=== PATIENT | male | born 1995 | race Caucasian/White ===

== ENCOUNTER 2017-07-21 05:29 | Emergency (ER) | payer OTHER ==
[2017-07-21 05:35] VITALS: PULSE 50; O2SAT 98
--- NOTE | 2017-07-21 05:35 | EDPHY ---
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 He presents emergency room by EMS after please make contact with him after his wandering around the outside of the local care home. He apparently got lost on [place] way [place]. He walked the wrong way and ended up outside the local care home. He does admit to drinking alcohol earlier in the evening. It is now 530 in the morning. Presents emergency room still intoxicated with alcohol on laceration to his right hand. He states he cut his hand on a fence. He is unsure exactly how he did this. He denies any other complaints. Past Medical History: Denies medical history Past Surgical History: Denies surgical history Social History: Admits to large amount of alcohol this evening. [employer] student. Does not smoke. Denies drugs. Family History: Noncontributory ROS REVIEW OF SYSTEMS: A comprehensive 10 point review of systems is otherwise negative aside from elements mentioned in the history of present illness. Exam Constitutional smells of alcohol, intoxicated, triage nursing summary reviewed , vital signs reviewed, awake/alert. Eyes normal conjunctivae and sclera, EOMI, PERRLA. HENT normal inspection, atraumatic, moist mucus membranes, no epistaxis, neck supple/ no meningismus, no raccoon eyes. Respiratory clear to auscultation bilaterally, normal breath sounds, no respiratory distress, no wheezing. Cardiovascular rate normal, regular rhythm, no murmur, no edema, distal pulses normal. Gastrointestinal soft, non-tender, no rebound, no guarding, normal bowel sounds, no distension, no pulsatile mass. Genitourinary no CVA tenderness. Musculoskeletal no midline vertebral tenderness, full range of motion, no calf swelling, no tenderness of extremities, no meningismus, good pulses, neurovascularly intact. Skin right hand: V-shaped laceration on the palmar surface middle of the palm 3 cm x 4 cm v-shaped. Rather deep. No obvious tendon mom. No arterial injury. No tendon involvement. Full range of motion of the right hand. Is neurovascular intact good cap refill. Good strength. Good attic blower strength. Full range of motion fingers. Significant amount of dry blood on both hands. Neurologic awake, alert and oriented x 3, AAOx3, moves all 4 extremities equally, motor intact, sensory intact, CN II-XII intact, normal cerebellar, normal vision, normal speech. Psychiatric normal mood/affect. Heme/Lymph/Immune no lymphadenopathy. Differential Diagnosis: Includes but is not limited to in a particular order acute alcohol intoxication, right hand laceration Medical Decision Making: Plan for this patient breath alcohol, clean both of his hands he has significant amount of dry blood on both hands, and then his laceration on his right palmar surface will need to be repaired. Re-evaluation: Laceration Repair Procedure: Verbal Consent was obtained, Under sterile conditions, The patient had lidocaine with epinephrine used approximately 10 ccs to local anesthetize the Right Palmar V shaped 3Cm x 4CM Laceration. The wound was copiously irrigated with sterile fluid, the wound was explored for foreign bodies there were none visualized, the wound was explored with a sterile glove to the base. There are no deep structures involved, including no arterial injury. NINE 5.O PROLENE interrupted Sutures were placed in this patient's laceration. He had good close approximation of the wound edges. He Tolerated this well. 0534: Breath alcohol 134 Given how deep this right palmar hand laceration is I will start on Keflex prophylactically. 1st dose given in emergency room. Keflex prescription as well. Tetanus shot be up-dated as well. Patient's wound is been copiously irrigated and cleaned out. No foreign body debris seen. X-ray the right hand performed: Reason for x-ray rule out foreign bodies 0606: Return precautions discussed with this patient. Patient understands to watch for signs of infection this includes includes worsening swelling, pain, redness, drainage, discharge. Antibiotics as prescribed. Keep his hand protected and clean and sutures intact. Sutures to be removed in 12-14 days. Went over this with this patient extensively understands. Source: Patient, EMS Constitutional: Initial Vital Signs Heart Rate 50 L 07/21/17 05:30 Respiratory Rate 16 07/21/17 05:30 Blood Pressure 121/82 H 07/21/17 05:30 O2 Sat (%) 98 07/21/17 05:30 O2 Delivery Mode Room Air Allergies/Adverse Reactions: No Known Allergies Allergy (Unverified 07/21/17 05:35) Home Medications: Medication Instructions Recorded Cephalexin [Keflex] 500 mg PO Q6H #28 cap 07/21/17 Ibuprofen [Motrin (*)] 800 mg PO Q6-8PRN #20 tab 07/21/17 Medical Decision Making - Data Points Medications Given: Discontinued Medications Cephalexin (Keflex 500 Mg Prepack#4) 1 btl TAKEHOME EDNOW ONE PRN Reason: Protocol Stop: 07/21/17 05:44 Last Admin: 07/21/17 05:52 Dose: 1 btl Cephalexin HCl (Keflex) 500 mg PO EDNOW ONE PRN Reason: Protocol Stop: 07/21/17 05:44 Last Admin: 07/21/17 05:48 Dose: 500 mg Diphtheria/Tetanus/Acell Pertussis (Boostrix) 0.5 ml IM .ONCE ONE Stop: 07/21/17 05:42 Last Admin: 07/21/17 05:48 Dose: 0.5 ml Departure - Departure Disposition: Home, Routine, Self-Care Clinical Impression: Alcoholic intoxication Qualifiers: Complication of substance-induced condition: uncomplicated Qualified Code(s): F10.920 - Alcohol use, unspecified with intoxication, uncomplicated Hand laceration Qualifiers: Encounter type: initial encounter Foreign body presence: without foreign body Laterality: right Qualified Code(s): S61.411A - Laceration without foreign body of right hand, initial encounter Condition: Good Instructions: Care For Your Stitches (ED), Laceration (ED) Additional Instructions: 1. Keep your wound clean, dry, and protected. 2. You need to have your sutures removed in 12-14 days. 3. Watch for signs of infection this includes redness, drainage, increasing swelling increasing pain. Referrals: Patient,NotPresent [Primary Care Provider] - As per Instructions Prescriptions: Cephalexin [Keflex] 500 mg PO Q6H #28 cap Ibuprofen [Motrin (*)] 800 mg PO Q6-8PRN #20 tab
[2017-07-21] MEDS ORDERED: TDAP ADULT 0.5 ML INJ (BOOSTRIX) IM ONE (05:41)
[2017-07-21] MEDS ORDERED: CEPHALEXIN 500MG PREPACK#4 BTL TAKEHOME ONE (05:43)
[2017-07-21] MEDS ORDERED: CEPHALEXIN 500 MG CAP PO ONE (05:43)
[2017-07-21 06:10] VITALS: BP 118/78; RESP 17
== END 2017-07-21 07:02 | disposition home or self-care (01) ==
PROC: 0HQFXZZ Repair Right Hand Skin, External Approach (ICD-10-PCS; principal; 2017-07-21)
DX: S61.411A Laceration without foreign body of right hand, initial encounter (principal); F10.920 Alcohol use, unspecified with intoxication, uncomplicated; Z23 Encounter for immunization; W26.8XXA Contact with other sharp object(s), not elsewhere classified, initial encounter; Y92.89 Other specified places as the place of occurrence of the external cause; Y93.01 Activity, walking, marching and hiking